=== PATIENT | male | born 1970 | race Caucasian/White ===

== ENCOUNTER → 2020-07-17 | Outpatient (CLI) | payer BC ==
[2020-07-17 15:36] LABS: Basophils # (A) 0.03 X 10*3/uL (0.00-0.10); Basophils % (A) 0.5 %; Eosinophils # (A) 0.23 X 10*3/uL (0.04-0.35); Eosinophils % (A) 3.6 %; HGB 14.8 g/dL (13.0-17.0); Lymphocytes # (A) 1.87 X 10*3/uL (0.90-5.00); Lymphocytes % (A) 29.5 %; MCH 29.4 pg (27.0-32.0); MCHC 32.9 g/dL (32.0-37.0); MCV 89.3 fL (80.0-97.0); Monocytes % (A) 7.9 %; Neutrophils # (A) 3.69 X 10*3/uL (1.80-7.70); Neutrophils % (A) 58.2 %; Platelet Count 290 X 10*3/uL (140-440); RBC 5.04 X 10*6/uL (4.40-5.60); RDW 13.2 % (11.5-14.5); WBC 6.34 X 10*3/uL (4.50-10.00)
[2020-07-17 19:10] LABS: Hemoglobin A1C 6.9 % (4.0-6.0)
[2020-07-17 22:47] LABS: African American GFR (CKD) 123.3 (60.0-200.0); Albumin 4.5 g/dL (3.80-4.90); Albumin/Globulin Ratio 1.96 (1.60-3.17); Anion Gap 9.7 mmol/L (4.00-12.00); BUN/Creat Ratio 22.5 Ratio (12.00-20.00); Calcium 9.3 mg/dL (8.7-10.3); Carbon Dioxide 24.3 mmol/L (21.6-31.8); Chol/HDL Ratio 3.13; Globulin 2.3 g/dL (1.6-3.3); LDL Cholesterol,Calculated 63.4 mg/dL (0.0-131.0); Non-African American GFR(CKD) 106.4 (60.0-200.0); Potassium 4.7 mmol/L (3.5-5.5); Total Bilirubin 0.8 mg/dL (0.2-1.2); Total Protein 6.8 g/dL (6.2-8.2); VLDL Calculation 21.6 mg/dL (5.00-40.00)
== END | disposition home or self-care (01) ==
LOC: LABWHC1 09:39
PROVIDERS: ATTEND Family Medicine
DX: E78.2 Mixed hyperlipidemia (principal); E11.9 Type 2 diabetes mellitus without complications; Z13.29 Encounter for screening for other suspected endocrine disorder; Z11.59 Encounter for screening for other viral diseases
CPT/HCPCS: 36415; 80053; 80061; 83036; 84443; 85025

== ENCOUNTER → 2020-07-17 | Outpatient (CLI) | payer BC ==
--- NOTE | 2020-07-17 10:38 | XR ---
EXAM TYPE: LUMBAR SPINE X RAY SERIES COMPARISON: NONE HISTORY: Pain TECHNIQUE: 4 views are submitted. FINDINGS: Alignment is anatomic. The pedicles are intact. The transverse processes are intact. There is no s pondylolysis or spondylolisthesis. Large spurs noted anteriorly at L4 and L5. Facet arthropathy L4-5 and L5-S1 with degenerative change L5-S1. IMPRESSION: 1. Degenerative disc disease L5-S1 with anterior hypertrophic spurring. Suggestion of foraminal encro achment. Consider follow-up MRI.
== END | disposition home or self-care (01) ==
LOC: RADXRMAIN 10:13
PROVIDERS: ATTEND Family Medicine
DX: M51.37 Other intervertebral disc degeneration, lumbosacral region (principal)
CPT/HCPCS: 72100

== ENCOUNTER → 2024-08-11 | Outpatient (CLI) | payer BC ==
--- NOTE | 2024-08-11 13:07 | XR ---
EXAMINATION TYPE: XR lumbosacral spine 5 views DATE OF EXAM: 08/11/2024 12:09 PM COMPARISON: 07/09/2020 CLINICAL INDICATION: Male, 53 years old with history of M54.41 LUMBAGO WITH SCIATICA, RIGHT SIDE; PHH , pain FINDINGS: There is leftward truncal shift. 5 lumbar type vertebral bodies. Moderate facet arthropathy lower lumbar spine. Mild to moderate degenerative disc disease mid to lower lumbar spine with mild d isc space narrowing and endplate spondylosis. Trace grade 1 retrolisthesis L2-L3 and L3-L4. Vertebral body heights are preserved. IMPRESSION: 1. Mild to moderate degenerative disc disease lower lumbar spine with moderate facet arthropathy. 2. Trace grade 1 retrolisthesis L2/L3 and L3-L4 appears similar from 2020. 3. No vertebral compression collapse. 4. Leftward truncal shift may be positional or due to muscle spasm. Clinically correlate. [facility], Workstation: [facility], 08/11/2024 1:05 PM
== END | disposition home or self-care (01) ==
LOC: RADXRMAIN 11:56
PROVIDERS: ATTEND Family Medicine
DX: M51.16 Intervertebral disc disorders with radiculopathy, lumbar region (principal); M43.16 Spondylolisthesis, lumbar region
CPT/HCPCS: 72110